=== PATIENT | female | born 2005 | race African-American/Black ===

== ENCOUNTER 2025-01-15 12:30 | Emergency (ER) | payer SELFPAY ==
[2025-01-15 12:45] VITALS: BP 124/69; PULSE 91; RESP 18; TEMP 36.4; O2SAT 99
[2025-01-15 13:23] VITALS: BP 120/75; PULSE 93; RESP 20; O2SAT 100; O2SAT 99
--- OUTSIDE RECORDS SUMMARY | 2025-01-15 13:55 | XMS_ITS | Encounter Summary ---
Author Organization [facility] Address [address] [address] Care Team Providers Care Associate Oracle Retail Name Role Phone Sailaja Sutton M.D. Unavailable [phone] Nita Fraga Primary Care Provider [phone] Encounter Details Date Type Department Care Team (Late st Contact Info) Description 11/16/2018 [place] Historical E DM Scans [facility] Provider [facility] Social History Tobacco Use Types Packs/Day Years Used Date Smoking Tobacco: Never Smokeless Tobacco: Never Alcohol Use Standard Drinks/Week Comments No 0 (1 standard drink = 0.6 oz pur e alcohol) Comments Unknown Sex and Gender Information Value Date Recorded Sex Assigned at Not on file Legal Sex Female 10:14 AM CDT Gender Identity Not on file Sexual Orientation Not on file documented as of this encounter Plan of Treatment Not on file documented as of this encounter Procedures Procedure Name Priority Date/Time Associated Diagnosis Comments LABS SCAN 11/16/2018 LABS SCAN 11/16/2018 documented in this encounter Results * LABS SCAN (11/16/2018) Narrative 11/16/2018 Ordered by an unspecified provider. [facility] Provider SCANNED EXTERNAL RES ULT Final Result * LABS SCAN (11/16/2018) Narrative 11/16/2018 Ordered by an unspecified provider. [facility] Provider SCANNED EXTERNAL RES ULT Final Result documented in this encounter Visit Diagnoses Not on filedocumented in this encounter Care Teams Associate Oracle Retail Relationship Specialty Start Date End Date Nita Fraga [address] [place] [address] PCP - General Pediatrics 06/05/16 Sailaja Sutton M.D. [address] [place] [facility] [address] [place] [address] Referring Provider Dermatology 05/02/15 documented as of this encounter
--- OUTSIDE RECORDS SUMMARY | 2025-01-15 13:55 | XMS_ITS | Clinical Summary ---
Author Organization [facility] Address [address] [address] Care Team Providers Care Residential Advisor Name Role Phone Sailaja Sutton M.D. Unavailable [phone] Nita Fraga Primary Care Provider [phone] Allergies No known active allergies Medications triamcinolone (KENALOG) 0.1% Top ointment 1 8 Active ketoconazole (NIZORAL) 2% Top creamIndication s:Angular cheilitis 1 Application by Topical route once daily as needed (for rashes at the corners of the mouth). 30 g 6 8 Active tretinoin (RETIN-A) 0.025% creamIndication s:Acne vulgaris Apply 1 Application to the affected area(s) every night at bedtime. For acne 1 Tube 1 Active Active Problems Problem Noted Date Diagnosed Date Angular cheilitis 05/13/2018 Dermatitis, atopic 03/09/2014 Morphea 02/10/2013 Resolved Problems Problem Noted Date Diagnosed Date Resolved Date Pityriasis rosea 11/23/2014 05/11/2015 Pityriasis alba 12/29/2013 05/13/2018 Family History Medical History Relation Comments Hypertension Maternal Aunt Hypertension Maternal Grandfather Hypertension Maternal Uncle Cancer - Melanoma Neg Hx Cancer - Non-melanoma Skin Neg Hx Relation Status Comments Maternal Aunt Maternal Grandfather Maternal Uncle Social History Tobacco Use Types Packs/Day Years Used Date Smoking Tobacco: Never Smokeless Tobacco: Never Alcohol Use Standard Drinks/Week Comments No 0 (1 standard drink = 0.6 oz pur e alcohol) Comments Unknown Sex and Gender Information Value Date Recorded Sex Assigned at Not on file Legal Sex Female 10:14 AM CDT Gender Identity Not on file Sexual Orientation Not on file Last Filed Vital Signs Vital Sign Reading Time Taken Comments Blood Pressure 110/74 02/03/2019 11:59 AM CDT Pulse 73 02/03/2019 11:59 AM CDT Temperature 36.7 C (98.1 F) 02/03/2019 11:59 AM CDT Respiratory Rate - - Oxygen Saturation 97% 02/03/2019 11:59 AM CDT Inhaled Oxygen Concentration - - Weight 67.8 kg (149 lb 6.4 oz) 02/03/2019 11:59 AM CDT Height 168 cm (5' 6.14) 02/03/2019 11:59 AM CDT Body Mass Index 24.01 02/03/2019 11:59 AM CDT Plan of Treatment Health Maintenance Due Date Last Done Comments CERVICAL CANCER SCREENING 2003 HEPATITIS C SCREENING 2003 TDAP/TD VACCINE (1 - Tdap) 2014 DEPRESSION SCREENING 2015 HIV SCREENING 2018 HPV VACCINE (1 - 3-dose series) 2018 COVID-19 VACCINE ( - 2023-2 5 season) 2024 INFLUENZA VACCINE (#1) 2025 08/14/2004 ZOSTER SERIES VACCINE (1 of 2) 2053 Adult RSV VACCINE (1 - 1-dos e 75+ series) 2078 Pneumococcal Vaccine: Childh ood and At-Risk Adult <65 yo Series Aged Out No longe r eligible based on patient's age to complete this topic Insurance [facility] HMO [address] [place], [place] [address] Care Teams Residential Advisor Relationship Specialty Start Date End Date Nita Fraga [address] [place] [address] PCP - General Pediatrics 06/05/16 Sailaja Sutton M.D. [address] [facility] [address] [place] [address] Referring Provider Dermatology 05/02/15
--- OUTSIDE RECORDS SUMMARY | 2025-01-15 13:55 | XMS_ITS | Clinical Summary ---
Author Organization [facility] Address [address] [place] [address] Care Team Providers Care Control Specialist Name Role Phone Unavailable Primary Care Provider Unavailabl e Source Comments In the event that this is information that is protected by federal Confidentiality of Substance UseDisorder Patient Records, 42 CFR Part 2 prohibits the unauthorized disclosure of these records.[facility] Allergies No known active allergies Medications Isotretinoin 40 mg Capsule Take one tablet daily after meal 30 capsule 03/11/2023 Active Social History Tobacco Use Types Packs/Day Years Used Date Smoking Tobacco: Never Assessed [employer] Answer Date Recorded Please choose the link for ' [employer]'above to launch [employer], a personalized community referral platform for a patient's SDOH needs. - 01/23/2023 Comments Unknown Sex and Gender Information Value Date Recorded Sex Assigned at Not on file Legal Sex Female 11:45 AM CDT Gender Identity Not on file Sexual Orientation Not on file Last Filed Vital Signs Vital Sign Reading Time Taken Comments Blood Pressure - - Pulse - - Temperature - - Respiratory Rate - - Oxygen Saturation - - Inhaled Oxygen Concentration - - Weight 71.7 kg (158 lb) 01/30/2023 7:44 AM CDT Height - - Body Mass Index - - Plan of Treatment Health Maintenance Due Date Last Done Comments HIV SCREENING 2018 Chlamydia Screening-Yearly 2019 Gonorrhea Screening-Yearly 2019 MENINGOCOCCAL B (MENB) (1 of 2 - Standard) 2019 HEPATITIS C SCREENING 2021 DTAP/TDAP/TD (7 - Td or Tdap) 02/05/2024 02/04/2014, 02/04/2014, 02/02/2009, Additional history exists COVID-19 VACCINE ( season) 2024 CERVICAL CANCER SCREENING 2024 INFLUENZA (#1) 2025 08/14/2004 LIPID TESTING 01/31/2028 01/30/2023 Pneumococcal 0-49 Aged Out 08/14/2004, , 2003, Additional history exists No longer eligible based on patient's age to complete this topic HPV Completed 06/13/2019, 03/30, 04/07/2017 MENINGOCOCCAL CONJUGATE (MCV4) Completed 01/20/2020, 08/30/2014 Procedures Procedure Name Priority Date/Time Associated Diagnosis Comments LIPID PANEL (AMA) W/LDL CALC Routine 01/30/2023 8:42 AM CDT Nodulocystic acne Medication management Medication monitoring encounter from Last 3 Months or Most Recently Relevant to Health Maintenance Results * Lipid Panel(AMA) w/LDL Calculated (01/30/2023 8:42 AM CDT) Total Cholesterol 133 mg/dL 023 10:14 AM CDT [facility] Comment:Guideline: < 170 mg/dl, Optimal (Not to be construed as a target for drug therapy.) Triglycerides 50 mg/dL 01/30/2023 10:14 AM CDT [facility] Comment: Guideline: < 100 mg/dl, Optimal (Not to be construed as a target for drug therapy.) > 499 mg/dl, Highly abnormal (Please review with your medical team.) HDL Cholesterol 51 mg/dL 3 10:14 AM CDT [facility] Comment:Guideline: > 50 mg/d l, Optimal (Not to be construed as a target for drug therapy.) LDL Cholesterol 70 mg/dL 3 10:14 AM T [facility] Comment: Guideline: < 100 mg/dl, Optimal (Not to be construed as a target for drug therapy.) > 189 mg/dl, Highly abnormal (Please review with your medical team.) Non-HDL Cholesterol 82 mg/dL 01/30/2023 10:14 AM CDT [facility] Comment: Guideline: < 120 mg/dl, Optimal (Not to be construed as a target for drug therapy.) > 219 mg/dl, Highly abnormal (Please review with your medical team.) Blood VEIN SPECIMEN / Unknown Blood Collection / Unknown 01/30/2023 8:42 AM CDT 01/30/2023 9:14 AM CDT [facility] - 01/30/2023 10:14 AM CDT On October 21, 2022, [facility] laboratories changed the equation for calculating estimated low-density lipoprotein-cholesterol (LDL-C) from the Friedewald equation to the José Miguel/Clara equation. This new equation is only valid for lipid panels with triglycerides < 400 mg/dL. Studies have demonstrated that this new equation will improve the accuracy of LDL-C, especially in scenarios when LDL-C concentrations are relatively low (< 100 mg/dL), triglycerides are elevated, or patient is non- fasting. References: - David Valdez, Bertin Domingo, Ricardo Lao, Jagdeep Meyer, Jagdeep Mendez, Ammon Guillory, and Emre Lester. 2013. Comparison of a Novel Method vs the Friedewald Equation for Estimating Low-Density Lipoprotein Cholesterol Levels from the Standard Lipid Profile. LIEN: The Journal of the [employer] [employer] 310 (19): 2061-68. - Mikki V, Amanda J, Masoud A, Abdi M, Cassandra R, Eleanor E, Pastora RS, Trevon SR, José Miguel SS. Fasting Versus Nonfasting and Low-Density Lipoprotein Cholesterol Accuracy. Circulation. 2018 Jun 30;137(1):10-19. us Martín Jet Torres MD CHEMISTRY ORDERABLES Fi nal Result [facility] Patricia Levin [address] [place] [address] from Last 3 Months or Most Recently Relevant to Health Maintenance Insurance [facility]
--- OUTSIDE RECORDS SUMMARY | 2025-01-15 13:55 | XMS_ITS | Encounter Summary ---
Author Organization [facility] Address [address] [address] Care Team Providers Care Emergency Service Restorer Name Role Phone Sailaja Sutton M.D. Unavailable [phone] Nita Fraga Primary Care Provider [phone] Encounter Details Date Type Department Care Team (Late st Contact Info) Description 11/11/2021 [place] Historical E DM Scans [facility] Provider, [place] Historical Social History Tobacco Use Types Packs/Day Years [...] on file documented as of this encounter Visit Diagnoses Not on filedocumented in this encounter Care Teams Emergency Service Restorer Relationship Specialty Start Date End Date Nita Fraga [address] [place] [address] PCP - General Pediatrics 06/05/16 Sailaja Sutton M.D. [address] [facility] M/C [address] [place] [address] Referring Provider Dermatology 05/02/15 documented as of this encounter
--- OUTSIDE RECORDS SUMMARY | 2025-01-15 13:55 | XMS_ITS | Encounter Summary ---
Author Organization [facility] Address [address] [address] Care Team Providers Care Eyeglass Lens Grinder Name Role Phone Sailaja Sutton M.D. Unavailable Nita Fraga Primary Care Provider [phone] Reason for Visit * Reason Onset Date Comments Eczema 04/12/2018 Encounter Details Date Type Department Care Team (Late st Contact Info) Description 04/12/2018 Telephone [facility] [address] [place] [address] Sailaja Sutton M.D. [address] [facility] [address] [place] [address] Social History Tobacco Use Types Packs/Day Years Used Date Smoking Tobacco: Never Alcohol Use Standard Drinks/Week Comments No 0 (1 standard drink = 0.6 oz pur e alcohol) Comments Unknown Sex and Gender Information Value Date Recorded Sex Assigned at Not on file Legal Sex Female 10:14 AM CDT Gender Identity Not on file Sexual Orientation Not on file documented as of this encounter Miscellaneous Notes * Telephone Encounter - Dante Adin - 04/12/2018 3:18 PM CDT Patient called to speak with the doctor or nurse about any [id number] medication to help witheczema flre around her mouth. documented in this encounter Plan of Treatment Not on file documented as of this encounter Visit Diagnoses Not on filedocumented in this encounter Care Teams Eyeglass Lens Grinder Relationship Specialty Start Date End Date Nita Fraga [address] [place] [address] PCP - General Pediatrics 06/05/16 Sailaja Sutton M.D. [address] [facility] [address] [place] [address] Referring Provider Dermatology 05/02/15 documented as of this encounter
--- OUTSIDE RECORDS SUMMARY | 2025-01-15 13:55 | XMS_ITS | Encounter Summary ---
Author Organization [facility] Address [address] [address] Care Team Providers Care Manager Industrial Name Role Phone Sailaja Sutton M.D. Unavailable Nita Fraga Primary Care Provider [phone] Encounter Details Date Type Department Care Team (Late st Contact Info) Description 03/20/2021 [place] Historical E DM Scans [facility] Provider, [place] Historical Social History Tobacco Use Types Packs/Day [...] on filedocumented in this encounter Care Teams Manager Industrial Relationship Specialty Start Date End Date Nita Fraga [address] [place] [address] PCP - General Pediatrics 06/05/16 Sailaja Sutton M.D. [address] [facility] M/C [address] [place] [id number] Referring Provider Dermatology 05/02/15 documented as of this encounter
--- OUTSIDE RECORDS SUMMARY | 2025-01-15 13:55 | XMS_ITS | Clinical Summary ---
Author Organization [facility] Address [address] [place] [address] Care Team Providers Care Foundry Worker Name Role Phone Nita Fraga MD Primary Care Provider [phone] Social History Tobacco Use Types Packs/Day Years Used Date Smoking Tobacco: Never Assessed Inadequate Housing Answer Date Recorded Social Determinants: Housing (Overall Score Help er) 0 03/01/2019 Comments Unknown Sex and Gender Information Value Date Recorded Sex Assigned at Not on file Legal Sex Female 10:55 PM CDT Gender Identity Not on file Sexual Orientation Not on file Plan of Treatment Health Maintenance Due Date Last Done Comments Well Child Visit (ages 3 - 21) 2006 Depression Screening 2015 Varicella Vaccine (1 of 2 - 13+ 2-dose series) 2016 HPV Vaccine (1 - 3-dose series) 2018 Meningococcal Serogroup B Va ccine (1 of 2 - Standard) 2019 Chlamydia and Gonorrhea Scre ening (if sexually active) 2021 DTaP/Tdap/Td Vaccine (1 - Tdap) 2022 Hepatitis B Vaccine (1 of 3 - 19+ 3-dose series) 2022 COVID-19 Vaccine ( - 2023-2 5 season) 2024 Influenza Vaccine (#1) 2025 Hepatitis A Vaccine Aged Out No longe r eligible based on patient's age to complete this topic Meningococcal Vaccine Aged Out No stephanie obdulia eligible based on patient's age to complete this topic Pneumococcal Vaccine 0-49 Aged Out No longer eligible based on patient's age to complete this topic Insurance [facility] Member Subscriber Plan / Payer (Ef fective 2023-Present) Name:Lilly Horton Relation to Subscriber:Self Name:Lilly Horton Payer ID:Not on file Group ID:Not on file Type:[id number] Address: [facility] [id number] [place] [id number] Care Teams Foundry Worker Relationship Specialty Start Date End Date Nita Fraga MD [address] [facility] [address] [place] [address] PCP - General 03/22/20
--- OUTSIDE RECORDS SUMMARY | 2025-01-15 13:55 | XMS_ITS | Encounter Summary ---
Author Organization [facility] Address [address] [address] Care Team Providers Care Under Seal Operator Name Role Phone Sailaja Sutton M.D. Unavailable Nita Fraga Primary Care Provider [phone] Encounter Details Date Type Department Care Team (Late st Contact Info) Description 11/11/2021 [place] Historical E DM Scans [facility] Provider, [place] Historical Social History Tobacco Use Types Packs/Day [...] on filedocumented in this encounter Care Teams Under Seal Operator Relationship Specialty Start Date End Date Nita Fraga [address] [place] [address] PCP - General Pediatrics 06/05/16 Sailaja Sutton M.D. [address] [facility] M/C [address] [place] [phone] Referring Provider Dermatology 05/02/15 documented as of this encounter
--- OUTSIDE RECORDS SUMMARY | 2025-01-15 13:55 | XMS_ITS | Encounter Summary ---
Author Organization [facility] Address [address] [address] Care Team Providers Care Rn Mental Health Name Role Phone Sailaja Sutton M.D. Unavailable Nita Fraga Primary Care Provider [phone] Encounter Details Date Type Department Care Team (Late st Contact Info) Description 03/20/2021 [place] Historical E DM Scans [facility] Provider, [place] Historical Social History Tobacco Use Types Packs/Day [...] on filedocumented in this encounter Care Teams Rn Mental Health Relationship Specialty Start Date End Date Nita Fraga [address] [place] [address] PCP - General Pediatrics 06/05/16 Sailaja Sutton M.D. [address] [facility] M/C [address] [place] [phone] Referring Provider Dermatology 05/02/15 documented as of this encounter
--- OUTSIDE RECORDS SUMMARY | 2025-01-15 13:55 | XMS_ITS | Encounter Summary ---
Author Organization [facility] Address [address] [address] Care Team Providers Care Cooker Casing Name Role Phone Sailaja Sutton M.D. Unavailable Nita Fraga Primary Care Provider [phone] Encounter Details Date Type Department Care Team (Late st Contact Info) Description 11/11/2021 [place] Historical E DM Scans [facility] Provider [facility] Social History Tobacco Use Types Packs/Day Years [...] Priority Date/Time Associated Diagnosis Comments LABS SCAN 11/11/2021 documented in this encounter Results * LABS SCAN (11/11/2021) Narrative 11/11/2021 Ordered by an unspecified provider. [facility] Historical Provider SCANNED EXTERNAL RES ULT Final Result documented in this encounter Visit Diagnoses Not on filedocumented in this encounter Care Teams Cooker Casing Relationship Specialty Start Date End Date Nita Fraga [address] [place] [address] PCP - General Pediatrics 06/05/16 Sailaja Sutton M.D. [address] [facility] [address] [place] [address] Referring Provider Dermatology 05/02/15 documented as of this encounter
--- NOTE | 2025-01-15 13:59 | ED.GENADULT ---
HPI - General Adult General Chief complaint: Upper Respiratory Infection Stated complaint: SORE THROAT X3D Time Seen by Provider: 01/15/25 13:27 History of Present Illness HPI narrative: 19-year-old female presents to the emergency department for evaluation for stroke though that is been ongoing for the past 3 days. Patient states is worse than the left. Patient denies any difficulty breathing but does have pain with swallowing. Patient denies any sick contacts. Patient denies concern for STIs. Patient denies any significant past medical history. Patient is in no apparent distress at time of evaluation. Related Data Allergies Allergy/AdvReac Type Severity Reaction Status Date / Time No Known Allergies Allergy Verified 01/15/25 12:31 Review of Systems Review of Systems: All systems reviewed & are unremarkable except as noted in HPI and below Exam Narrative: APPEARANCE: Well appearing, no pain, no distress, well-nourished. HEAD: normocephalic, atraumatic. EYES: PERRLA/EOMI, conjunctivae clear. NOSE: Normal no drainage EARS:TMS clear with good light reflex. THROAT: Bilateral tonsillar exudate NECK: Supple. No adenopathy, no masses. RESPIRATORY: Airway patent, respirations nonlabored. Clear to auscultation bilaterally, no rales, rhonchi, wheezing. CARDIOVASCULAR: Regular rate and rhythm without murmurs rubs or gallops. ABDOMINAL: Soft, nontender, nondistended, normal bowel sounds MUSCULOSKELETAL: Moves all extremities. Strength/ROM intact, No edema, No calf tenderness. NEURO: Alert. Cranial nerves II through XII intact. Grossly intact SKIN: Warm, dry. Normal Color Course Vital Signs Vital signs: Vital Signs Temperature 97.5 F L 01/15/25 12:45 Pulse Rate 91 01/15/25 12:45 Respiratory Rate 18 01/15/25 12:45 Blood Pressure 124/69 01/15/25 12:45 Pulse Oximetry 99 01/15/25 12:45 Oxygen Delivery Room Air 01/15/25 12:45 Temperature 97.5 F L 01/15/25 12:45 Pulse Rate 91 01/15/25 15:03 Respiratory Rate 20 01/15/25 15:03 Blood Pressure 109/56 L 01/15/25 15:03 Pulse Oximetry 99 01/15/25 15:03 Oxygen Delivery Room Air 01/15/25 13:23 Medical Decision Making MDM Narrative Medical decision making narrative: 19-year-old female presents emergency department for operation for worsening sore throat. Patient has no significant asymmetry. Uvula is midline and no posterior pharyngeal swelling. Patient was negative for influenza RSV COVID and strep. Patient does have significant tonsillar swelling and exudate. Patient's strep was negative. Patient will be started on antibiotics for tonsillitis. Patient was treated with a dose of dexamethasone. Differential Diagnosis Differential Diagnosis: Peritonsillar abscess, posterior pharyngeal abscess, tonsillitis Vital Signs Vital Signs: Vital Signs Temperature 97.5 F L 01/15/25 12:45 Pulse Rate 91 01/15/25 12:45 Respiratory Rate 18 01/15/25 12:45 Blood Pressure 124/69 01/15/25 12:45 Pulse Oximetry 99 01/15/25 12:45 Oxygen Delivery Room Air 01/15/25 12:45 Temperature 97.5 F L 01/15/25 12:45 Pulse Rate 91 01/15/25 15:03 Respiratory Rate 20 01/15/25 15:03 Blood Pressure 109/56 L 01/15/25 15:03 Pulse Oximetry 99 01/15/25 15:03 Oxygen Delivery Room Air 01/15/25 13:23 Lab Data Lab results reviewed: Yes I reviewed the patient's lab results. Labs: Lab Results 01/15/25 Range/Units 13:32 Influenza A (RT-PCR) Negative (Negative) Influenza B (RT-PCR) Negative (Negative) RSV (RT-PCR) Negative (Negative) SARS-CoV-2 RNA (RT-PCR) Negative (Negative) Group A Strep (PCR) Not detected (Negative) Discharge Plan Discharge Clinical Impression: Acute tonsillitis Patient Disposition: Home Condition: Stable Instructions: Antibiotic Form, Tonsillitis (ED) Additional Instructions: Antibiotic as directed until completed. Tylenol and ibuprofen for pain control. Have close follow-up with your primary care physician. Patient Language: [place] Prescriptions: New amoxicillin-pot clavulanate 875-125 mg tablet 1 tablet PO Q12H 7 Days Qty: 14 0RF Follow-up/Referrals: PHYSICIAN,ACCOUNTS RECEIVABLE SUPERVISOR [Primary Care Provider] -
[2025-01-15 14:00] LABS: Strep Group A RT-PCR NOT DETECTED (Negative)
[2025-01-15 14:12] LABS: Influenza A QL RT-PCR Negative (Negative); Influenza B QL RT-PCR Negative (Negative); RSV RNA, RT-PCR Negative (Negative); SARS-CoV-2 RNA PCR Negative (Negative)
[2025-01-15 15:03] VITALS: BP 109/56; PULSE 91; RESP 20; O2SAT 99
[2025-01-15] MEDS: dexAMETHasone SOD PHOS INJ 10 MG/ML 1 ML VIAL IM (15:03)
== END 2025-01-15 15:17 | disposition home or self-care (01) ==
PROVIDERS: Emergency Provider Emergency Medicine
DX: J03.90 Acute tonsillitis, unspecified (principal); Z20.822 Contact with and (suspected) exposure to COVID-19
CPT/HCPCS: 87637; 87651; 96372; 99283; A9270; J1100